=== PATIENT | female | born 2000 | race Caucasian/White ===

== ENCOUNTER 2022-07-04 14:47 | Outpatient (REF) | payer BC, SELFPAY ==
--- NOTE | 2022-07-04 14:15 | PAPFT_PTH ---
PATIENT: Carolyn Ag LOC: [facility] U#:[id number] AGE/SX: 22/ ROOM: RE07/04/[address]: Judy Abdullahi NP : 2000 BED: DIS: 07/04/2022 SPEC #: [id number] RECD: 07/04/22 18:01 STATUS: YADIRA REQ #: [id number] MIGUEL: 07/04/22 14:[address]: Kaylen MELENDEZ,Judy DEPT: [facility] Cytology RECD BY: Sujey Bingham ENTERED: 07/04/22 18:01 SP TYPE: PAPFT OTHR DR: Unknown,Unknown Tissues: 1 - CX/ENDOCX FOR PAP SMEARS Procedures: PAP THIN PREP/[facility] Screening Comments: [id number] (CHLAMYDIA/GC) (UNSATISFACTORY FOR EVALUATION)
[2022-07-05 15:09] LABS: Chlamydia Result Negative (Negative); GC Result Negative (Negative)
== END 2022-07-04 14:48 | disposition home or self-care (01) ==
LOC: LBN 14:47
PROVIDERS: Visit Provider Nurse Practitioner Women's Health
DX: Z11.3 Encounter for screening for infections with a predominantly sexual mode of transmission (principal); Z12.4 Encounter for screening for malignant neoplasm of cervix; R87.615 Unsatisfactory cytologic smear of cervix
CPT/HCPCS: 87491; 87591; 88142

== ENCOUNTER 2022-08-13 14:56 | Outpatient (REF) | payer BC, SELFPAY ==
--- NOTE | 2022-08-13 14:20 | PAPFT_PTH ---
PATIENT: Carolyn Ag LOC: [facility] U#:[id number] AGE/SX: 22/F ROOM: RE08/13/[address]: Judy Abdullahi NP : 2000 BED: DIS: 08/13/2022 SPEC #: [id number] RECD: 08/13/22 17:45 STATUS: YADIRA RESheryl #: [id number] MIGUEL: 08/13/22 14:[address]: Judy Abdullahi NP DEPT: [facility] Cytology RECD BY: Sujey Bingham Tissues: 1 - CX/ENDOCX FOR PAP SMEARS Procedures: PAP THIN PREP/[facility] Screening Comments: [id number]
== END 2022-08-13 14:57 | disposition home or self-care (01) ==
LOC: LBN 14:56
PROVIDERS: Visit Provider Nurse Practitioner Women's Health
DX: Z12.4 Encounter for screening for malignant neoplasm of cervix (principal)
CPT/HCPCS: 88142